=== PATIENT | male | born 1980 | race Caucasian/White ===

== ENCOUNTER 2020-05-10 07:31 | Emergency (ER) | payer OTHER ==
[2020-05-10] MEDS ORDERED: KETOROLAC 30 MG/ML VIAL IVP STA (08:09)
[2020-05-10 08:28] LABS: BASOPHILS % (AUTO) 0.5 %; EOSINOPHILS # (AUTO) 0.4 10^3/uL (0.0-0.7); EOSINOPHILS % (AUTO) 4.6 %; HCT - HEMATOCRIT 44.4 % (42.0-52.0); HGB - HEMOGLOBIN 14.9 g/dL (14.0-18.0); LYMPHOCYTES # (AUTO) 2.8 10^3/uL (1.5-3.5); LYMPHOCYTES % (AUTO) 36.3 %; MEAN CORPUSCULAR HEMOGLOBIN 31.2 pg (27.0-31.0); MEAN CORPUSCULAR HGB CONC 33.6 g/dL (32.0-36.0); MEAN CORPUSCULAR VOLUME 93.1 fL (80.0-94.0); MEAN PLATELET VOLUME 9.7 fL (7.4-11.4); MONOCYTES # (AUTO) 0.9 10^3/uL (0.0-1.0); MONOCYTES % (AUTO) 11.9 %; NEUTROPHILS # (AUTO) 3.5 10^3/uL (1.5-6.6); NEUTROPHILS % (AUTO) 46.4 %; PLT - PLATELET COUNT 256 10^3/uL (130-450); RED BLOOD COUNT 4.77 10^6/uL (4.70-6.10); RED CELL DISTRIBUTION WIDTH 13.2 % (12.0-15.0); WHITE BLOOD COUNT 7.6 x10^3/uL (4.8-10.8)
--- NOTE | 2020-05-10 08:36 | XRAY Report ---
PROCEDURE: Chest 1 View X-Ray INDICATIONS: Chest Pain TECHNIQUE: One view of the chest was acquired. COMPARISON: None FINDINGS: Surgical changes and devices: None. Lungs and pleura: No pleural effusions or pneumothorax. Lungs are clear. Mediastinum: Mediastinal contours appear normal. Heart size is normal. Bones and chest wall: No suspicious bony lesions. Overlying soft tissues appear unremarkable. IMPRESSION: No acute cardiopulmonary disease process. Reviewed by: Rylee Vail MD, PhD on 05/10/2020 8:35 AM [facility] Approved by: Rylee Vail MD, PhD on 05/10/2020 8:35 AM [facility] Station ID: [id number]
[2020-05-10 08:42] LABS: ALBUMIN 4.5 g/dL (3.2-5.5); ALBUMIN/GLOBULIN RATIO 1.4 (1.0-2.2); BILIRUBIN,TOTAL 0.9 mg/dL (0.2-1.0); POTASSIUM 4.5 mmol/L (3.5-5.0); TOTAL PROTEIN 7.7 g/dL (6.7-8.2)
--- NOTE | 2020-05-10 09:08 | ED Physician Documentation ---
PD HPI ABD PAIN - Stated complaint Stated Complaint: ABD PX - Chief complaint Chief Complaint: Abd Pain - History obtained from History obtained from: Patient - Additional information Additional information: 39-year-old man with history of SI joint disease, occasional smoker, presents with left upper back pain starting on Sunday initially nonradiating, intermittent, worse with movement, and turning neck, now radiating to epigastrium and lower mid anterior rib cage, moderate severity, associated with frequent episode of nausea yesterday when the pain was the worst. Improved with Tylenol. Worse with deep breathing. PERC negative. Patient denies chest pain, shortness of breath, cough, fever, vomiting or other abdominal pain. Endorses positional pain, worse after sledding this weekend. Review of Systems Ten Systems: 10 systems reviewed and negative Constitutional: denies: Fever, Chills Cardiac: reports: Other (upper back and chest discomfort) Respiratory: reports: Other (pain with deep breathing). denies: Dyspnea, Cough GI: reports: Nausea (yesterday, brief a/w pain). denies: Vomiting PD PAST MEDICAL HISTORY - Past Medical History Other Past Medical History: synergy injection sacral. - Present Medications Home Medications: Ambulatory Orders Medication Instructions Recorded Confirmed Acetaminophen [Tylenol] 1 - 2 tab PO DAILY PRN 05/10/20 05/10/20 - Allergies Allergies/Adverse Reactions: Allergies Allergy/AdvReac Type Severity Reaction Status Date / Time Penicillins Allergy Unknown Verified 05/10/20 07:51 - Social History Does the pt smoke?: Yes Smoking Status: Current every day smoker Does the pt drink ETOH?: Yes Does the pt have substance abuse?: No PD ED PE NORMAL - Vitals Vital signs reviewed: Yes - General General: Alert and oriented X 3, No acute distress, Well developed/nourished - HEENT HEENT: Atraumatic, PERRL, EOMI - Neck Neck: Supple, no meningeal sign - Cardiac Cardiac: RRR, Other (pain reproducible with palpation of lower midsternum and anterior ribcage.) - Respiratory Respiratory: No respiratory distress, Clear bilaterally - Abdomen Abdomen: Non tender, Non distended - Male Male : Deferred - Rectal Rectal: Deferred - Back Back: No CVA TTP - Derm Derm: Normal color, Warm and dry - Extremities Extremities: No deformity, No edema, No calf tenderness / cord, Other (2+ peripheral pulses BL UE) - Neuro Neuro: Alert and oriented X 3 - Psych Psych: Normal mood, Normal affect Results - Vitals Vitals: Vital Signs - 24 hr 05/10/20 05/10/20 07:34 08:32 Temperature 36.2 C L Heart Rate 88 80 Respiratory 16 15 Rate Blood Pressure 141/108 H 131/99 H O2 Saturation 99 98 Oxygen O2 Source Room air - EKG (time done) 0846 Rate: Rate (enter#) (80) Rhythm: NSR [place]: Normal Intervals: Normal MO QRS: Normal Ischemia: Normal ST segments - Labs Labs: Laboratory Tests 05/10/20 05/10/20 08:21 08:21 WBC 7.6 RBC 4.77 Hgb 14.9 Hct 44.4 MCV 93.1 MCH 31.2 H MCHC 33.6 RDW 13.2 Plt Count 256 MPV 9.7 Neut # (Auto) 3.5 Lymph # (Auto) 2.8 [place] # (Auto) 0.9 Eos # (Auto) 0.4 Baso # (Auto) 0.0 Absolute Nucleated RBC 0.00 Nucleated RBC % 0.0 Sodium 135 Potassium 4.5 Chloride 101 Carbon Dioxide 23 Anion Gap 11.0 BUN 16 Creatinine 1.0 Estimated GFR (MDRD) 83 L Glucose 107 H Calcium 9.0 Total Bilirubin 0.9 AST 34 ALT 50 Alkaline Phosphatase 56 Total Protein 7.7 Albumin 4.5 Globulin 3.2 Albumin/Globulin Ratio 1.4 Lipase 38 PD MEDICAL DECISION MAKING - ED course ED course: 39-year-old man presents with atypical chest pain symptom medic of musculoskeletal origin. PERC negative. EKG within normal limits and blood work noncontributory. Pain improved with toradol. Strict return precautions discussed. Patient will follow up with his primary doctor this week.
[2020-05-10 09:40] VITALS: BP 126/97
== END 2020-05-10 09:46 | disposition home or self-care (01) ==
LOC: ED 07:31
DX: R07.89 Other chest pain (principal); M54.89 Other dorsalgia; F17.200 Nicotine dependence, unspecified, uncomplicated
CPT/HCPCS: 36415; 80053; 83690; 84484; 85025; 93005; 96374; 99284

== ENCOUNTER 2020-05-12 20:04 | Emergency (ER) | payer OTHER ==
[2020-05-12] MEDS ORDERED: oxyCODONE 5 MG TABLET PO STA (20:51)
[2020-05-12] MEDS ORDERED: predniSONE 20 MG TABLET PO STA (20:53)
--- NOTE | 2020-05-12 20:55 | ED Physician Documentation ---
History of Present Illness - Stated complaint Stated Complaint: CHEST RASH/BLISTERS - Chief complaint Chief Complaint: Wound - History obtained from History obtained from: Patient - History of Present Illness Timing: How many days ago (several days) Pain level max: 9 Pain level now: 9 - Additonal information Additional information: 39-year-old male presents to the emergency department stating he has had left- sided chest pain for the past several days, been seen by his doctor and in the emergency department normal cardiac work-up. Today noted a rash to the area. Nothing makes it better or worse. Has not had similar symptoms previously. Is not on medication currently. Review of Systems Constitutional: denies: Fever, Chills Respiratory: denies: Cough GI: denies: Vomiting, Diarrhea Skin: denies: Rash Musculoskeletal: denies: Neck pain, Back pain PD PAST MEDICAL HISTORY - Past Medical History Past Medical History: No - Past Surgical History Past Surgical History: No - Present Medications Home Medications: Ambulatory Orders Medication Instructions Recorded Confirmed Acetaminophen [Tylenol] 1 - 2 tab PO DAILY PRN 05/10/20 05/10/20 Oxycodone HCl/Acetaminophen 1 - 2 each PO Q6H PRN #20 tab 05/12/20 [Percocet 5-325 mg Tablet] Valacyclovir HCl [Valtrex] 1,000 mg PO TID #21 05/12/20 predniSONE [Deltasone] 10 mg PO [id number] #42 tab 05/12/20 - Allergies Allergies/Adverse Reactions: Allergies Allergy/AdvReac Type Severity Reaction Status Date / Time Penicillins Allergy Unknown Verified 05/12/20 20:10 - Living Situation Living Situation: reports: With family Living Arrangement: reports: At home - Social History Does the pt smoke?: Yes Smoking Status: Current some day smoker Does the pt drink ETOH?: Yes Does the pt have substance abuse?: No PD ED PE NORMAL - Vitals Vital signs reviewed: Yes - General General: Alert and oriented X 3, No acute distress - HEENT HEENT: Moist mucous membranes - Neck Neck: Supple, no meningeal sign - Cardiac Cardiac: RRR - Respiratory Respiratory: No respiratory distress, Clear bilaterally - Abdomen Abdomen: Soft, Non tender, Non distended - Derm Derm: Warm and dry, Other (Diffuse vesicular rash in a single dermatome to the left chest wrapping around to the left back. Does not cross midline) - Extremities Extremities: No edema - Neuro Neuro: Alert and oriented X 3 Results - Vitals Vitals: Vital Signs - 24 hr 05/12/20 21:10 Temperature 36.5 C Heart Rate 91 Respiratory 20 Rate Blood Pressure 137/90 H O2 Saturation 98 Oxygen O2 Source Room air PD MEDICAL DECISION MAKING - ED course Complexity details: reviewed results, re-evaluated patient, considered differential, d/w patient ED course: Patient with what appears to be shingles. We will treat him with valacyclovir, prednisone and pain medication. Patient is well-appearing, nontoxic. Afebrile. Patient counseled regarding signs and symptoms for which I believe and urgent re-evaluation would be necessary. Patient with good understanding of and agreement to plan and is comfortable going home at this time This document was made in part using voice recognition software. While efforts are made to proofread this document, sound alike and grammatical errors may occur. Departure - Departure Disposition: 01 Home, Self Care Clinical Impression: Shingles Qualifiers: Herpes zoster complications: without complications Qualified Code(s): B02.9 - Zoster without complications Condition: Good Instructions: ED Shingles Follow-Up: your,doctor in 1 week [Other] Prescriptions: predniSONE [Deltasone] 10 mg PO [id number] #42 tab Oxycodone HCl/Acetaminophen [Percocet 5-325 mg Tablet] 1 - 2 each PO Q6H PRN #20 tab PRN Reason: pain Valacyclovir HCl [Valtrex] 1,000 mg PO TID #21 Comments: Take the acyclovir until gone. Return if you worsen. This needs to stay covered when you are in public as it is contagious. Do not drink alcohol or drive while on narcotic pain medicine. Note that many narcotic pain relievers also contain tylenol/acetaminophen. Please ensure that your total dose of acetaminophen from all sources does not exceed 3 grams (3000mg) per day. You may constipated on this medication, take a stool softener such as "Colace" twice a day while you are on it. Also recommend a [id number] laxative such as senna or MiraLAX any day that you do not have a bowel movement. If you received narcotic pain medication in the emergency department, do not drive or operate machinery for the next 24 hours. Forms: Activity restrictions Discharge Date/Time: 05/12/20 21:10
[2020-05-12] MEDS ORDERED: valACYclovir 500 MG TABLET PO ONE (21:00)
[2020-05-12 21:13] VITALS: BP 137/90
== END 2020-05-12 21:10 | disposition home or self-care (01) ==
LOC: ED 20:04
DX: B02.9 Zoster without complications (principal); F17.200 Nicotine dependence, unspecified, uncomplicated
CPT/HCPCS: 99282; 99284; A9270; J7512

== ENCOUNTER 2022-02-22 12:22 | Outpatient (CLI) | payer OTHER ==
--- NOTE | 2022-02-22 14:18 | MRI Report ---
PROCEDURE: KNEE WO - LT INDICATIONS: INJURY TO LEFT LOWER LEG TECHNIQUE: Noncontrast sagittal PD fast spin echo and T2 fast spin echo with fat saturation, sagittal 3-D gradie nt sequence with fat saturation; coronal T1 spin echo and PD fast spin echo with fat saturation, and axial PD fast spin echo with fat saturation through the knee. COMPARISON: None. FINDINGS: Image quality: Excellent Menisci Medial: Horizontal small peripheral fraying of the posterior horn. No significant tear otherwise. Lateral: Intact. Meniscopopliteal fascicles maintained. Cruciate ligaments: Intact Medial structures MCL: Intact Pes anserine tendons: Intact Semimembranosus: Intact Lateral structures LCL: Intact Biceps femoris: Intact IT band: Intact Popliteus tendon: Intact Anterior structures Extensor mechanism: Intact. Mild prepatellar edema. Fat pads: No pathologic edema Medial retinaculum: Intact. Trochlea: Unremarkable morphology. Bone and joint Bones: No fracture, dislocation, or suspicious edema Suspected bone island in the proximal tibia. Cartilage: There is full-thickness fissuring of the trochlear cartilage in the trochlear groove, with some underlying marrow edema. Mild chondromalacia is seen elsewhere, with some heterogeneity. Joint space: Physiologic fluid. No measureable loose body. Fleming's cyst: None Soft tissues: No significant vascular or other soft tissue pathology. IMPRESSION: Full-thickness fissuring with underlying marrow edema of the trochlear cartilage. No significant inte rnal derangement otherwise. Other findings as above. Reviewed by: Rell Cage MD on 02/22/2022 2:16 PM PST Approved by: Rell Cage MD on 02/22/2022 2:16 PM PST Station ID: [id number]
== END 2022-02-22 12:23 | disposition home or self-care (01) ==
LOC: DI 12:22
PROVIDERS: ATTEND Internal Medicine
DX: M94.8X6 Other specified disorders of cartilage, lower leg (principal)